=== PATIENT | male | born 1970 | race Caucasian/White ===

== ENCOUNTER 2021-03-14 10:58 | Emergency (ER) | payer BC ==
[~2021-03-14] VITALS: Ht 190.5 cm; Wt 112.0 kg
[~2021-03-14 10:58] MED LIST: CYCL10TA9 PO; NAPR-243 PO; PRD20T PO
[2021-03-14] MEDS ORDERED: ASPIRIN 81 MG CHEW (CHILDREN'S ASA) PO ONE (11:15)
[2021-03-14 11:23] LABS: BASOPHILS # (AUTO) 0.1 10^3/uL (0.0-0.1); BASOPHILS % (AUTO) 1 % (0-10); EOSINOPHILS # (AUTO) 0.2 10^3/uL (0.0-0.3); EOSINOPHILS % (AUTO) 2 % (0-10); HEMATOCRIT 50 % (40-54); HEMOGLOBIN 17.1 g/dL (13.3-17.7); LYMPHOCYTES # (AUTO) 2.4 10^3/uL (1.0-4.0); LYMPHOCYTES % (AUTO) 28 % (12-44); MEAN CORPUSCULAR HEMOGLOBIN 30 pg (25-34); MEAN CORPUSCULAR HGB CONC 34 g/dL (32-36); MEAN CORPUSCULAR VOLUME 87 fL (80-99); MEAN PLATELET VOLUME 9.4 fL (9.0-12.2); MONOCYTES # (AUTO) 0.6 10^3/uL (0.0-1.0); MONOCYTES % (AUTO) 7 % (0-12); NEUTROPHILS # (AUTO) 5.4 10^3/uL (1.8-7.8); NEUTROPHILS % (AUTO) 62 % (42-75); PLATELET COUNT 325 10^3/uL (130-400); WHITE BLOOD COUNT 8.7 10^3/uL (4.3-11.0)
[2021-03-14] MEDS ORDERED: MECLIZINE 25 MG (ANTIVERT) TAB PO STA (11:29)
--- NOTE | 2021-03-14 11:30 | ED Cardiac General ---
History of Present Illness General Chief Complaint: Chest Pain Stated Complaint: DIZZY,CHEST TIGHTNESS Nursing Triage Note: PT AMBULATE TO ROOM 06 WITH C/O CHEST PAIN STARTING X1 WEEK AGO. PT REPORTS DIZZYNESS. History of Present Illness Date Seen by Provider: Mar 14, 2021 Time Seen by Provider: 11:15 Initial Comments 51-year-old male presents for vertigo and chest pain. He reports the chest pain has been present for approximately 20 years, its intermittent and usually feels like he is pulled a muscle. The vertigo has been present for approximately 1 week and has been intermittent but got worse 2 days ago. He feels like he is spinning and the only way that it gets better is if he lies down. He has not taken any medication for the vertigo or the chest pain. He has no known history of CAD and no family history of CAD. He does not have a primary care provider. He has not received the Covid vaccine. He works at a local [employer] and is exposed to the public regularly. He monitors his B/P at home and has noticed it to be elevated but has not seen anyone for this. Timing/Duration: intermittent Severity: mild Location: central (not present now and no radiation when it happens) Activities at Onset: none Prior CP/Workup: no prior chest pain NTG SL DESILVERIZER: No ASA po DESILVERIZER: No Associated Systoms: Chest Pain; No Cough, No Diaphoresis, No Fever/Chills, No Headaches, No Loss of Appetite, No Nausea/Vomiting, No Shortness of Air, No Syncope Allergies and Home Medications Allergies Coded Allergies: Penicillins (Verified Adverse Reaction, Mild, Hives, 06/30/13) Home Medications Cyclobenzaprine Hcl 10 Mg Tablet, 1 EACH PO BID Prescribed by: SAHIL GALLARDO on 06/30/13 1005 Lisinopril 10 Mg Tablet, 10 MG PO DAILY Prescribed by: JAYY CHILDS on 03/14/21 1314 Naproxen 500 Mg Tablet, 500 EACH PO BID - TID PRN Prescribed by: SAHIL GALLARDO on 06/30/13 1005 Prednisone 20 Mg Tab, 20 MG PO DAILY Prescribed by: SAHIL GALLARDO on 06/30/13 1005 Patient Home Medication List Home Medication List Reviewed: Yes Review of Systems Review of Systems Constitutional: see HPI, dizziness Respiratory: No Symptoms Reported, See HPI Cardiovascular: See HPI, Chest Pain (chronic, feels like a muscle strain) Gastrointestinal: No Symptoms Reported, See HPI All Other Systems Reviewed Negative Unless Noted: Yes Past Klpkzqr-Eusnww-Errovg Hx Patient Social History Tobacco Use?: No Smoking Status: Former Smoker Substance use?: No Alcohol Use?: Yes Alcohol type: Beer Alcohol Frequency: Once in a while Pt feels they are or have been: No Past Medical History Reproductive Disorders: No Gastroesophageal Reflux Family Medical History Reviewed Nursing Family Hx Physical Exam Vital Signs Vital Signs - First Documented 03/14/21 03/14/21 11:05 13:23 Temp 36.3 Pulse 64 Resp 17 B/P (MAP) 176/130 (145) Pulse Ox 98 O2 Delivery Room Air Capillary Refill : Less Than 3 Seconds Height, Weight, BMI Height: '" Weight: 245lbs. oz. 111.026809vf; 30.00 BMI Method:Stated General Appearance: No Apparent Distress, WD/WN HEENT: PERRL/EOMI, TMs Normal, Normal ENT Inspection Neck: Full Range of Motion, Normal Inspection, Non Tender, Supple Respiratory: Chest Non Tender, Lungs Clear, Normal Breath Sounds Cardiovascular: Regular Rate, Rhythm, No Edema, No Murmur, Normal Peripheral Pulses Gastrointestinal: Normal Bowel Sounds, Non Tender, Soft Extremity: Normal Capillary Refill, Normal Inspection, Normal Range of Motion, Non Tender, No Calf Tenderness Neurologic/Psychiatric: Alert, Oriented x3, No Motor/Sensory Deficits, Normal Mood/Affect Skin: Normal Color, Warm/Dry Progress/Results/Core Measures Results/Orders Lab Results Laboratory Tests Test 03/14/21 11:17 03/14/21 11:23 Range/Units White Blood Count 8.7 4.3-11.0 10^3/uL Red Blood Count 5.77 H 4.30-5.52 10^6/uL Hemoglobin 17.1 13.3-17.7 g/dL Hematocrit 50 40-54 % Mean Corpuscular Volume 87 80-99 fL Mean Corpuscular Hemoglobin 30 25-34 pg Mean Corpuscular Hemoglobin Concent 34 32-36 g/dL Red Cell Distribution Width 11.8 10.0-14.5 % Platelet Count 325 130-400 10^3/uL Mean Platelet Volume 9.4 9.0-12.2 fL Immature Granulocyte % (Auto) 0 % Neutrophils (%) (Auto) 62 42-75 % Lymphocytes (%) (Auto) 28 12-44 % Monocytes (%) (Auto) 7 0-12 % Eosinophils (%) (Auto) 2 0-10 % Basophils (%) (Auto) 1 0-10 % Neutrophils # (Auto) 5.4 1.8-7.8 10^3/uL Lymphocytes # (Auto) 2.4 1.0-4.0 10^3/uL Monocytes # (Auto) 0.6 0.0-1.0 10^3/uL Eosinophils # (Auto) 0.2 0.0-0.3 10^3/uL Basophils # (Auto) 0.1 0.0-0.1 10^3/uL Immature Granulocyte # (Auto) 0.0 0.0-0.1 10^3/uL Prothrombin Time 13.5 12.2-14.7 SEC INR Comment 1.0 0.8-1.4 Activated Partial Thromboplast Time 27 24-35 SEC Sodium Level 140 135-145 MMOL/L Potassium Level 4.1 3.6-5.0 MMOL/L Chloride Level 107 98-107 MMOL/L Carbon Dioxide Level 23 21-32 MMOL/L Anion Gap 10 5-14 MMOL/L Blood Urea Nitrogen 11 7-18 MG/DL Creatinine 0.88 0.60-1.30 MG/DL Estimat Glomerular Filtration Rate 92 BUN/Creatinine Ratio 13 Glucose Level 113 H 70-105 MG/DL Calcium Level 9.7 8.5-10.1 MG/DL Corrected Calcium 9.5 8.5-10.1 MG/DL Magnesium Level 2.3 1.6-2.4 MG/DL Total Bilirubin 0.8 0.1-1.0 MG/DL Aspartate Amino Transf (AST/SGOT) 41 H 5-34 U/L Alanine Aminotransferase (ALT/SGPT) 35 0-55 U/L Alkaline Phosphatase 75 40-136 U/L Myoglobin 44.7 10.0-92.0 NG/ML Troponin I < 0.028 <0.028 NG/ML Total Protein 7.7 6.4-8.2 GM/DL Albumin 4.2 3.2-4.5 GM/DL Influenza Type A (RT-PCR) Not Detected Not Detecte Influenza Type B (RT-PCR) Not Detected Not Detecte SARS-CoV-2 RNA (RT-PCR) Not Detected Not Detecte My Orders Orders - JAYY CHILDS Cbc With Automated Diff (03/14/21 11:14) Magnesium (03/14/21 11:14) Chest 1 View, Ap/Pa Only (03/14/21 11:14) Ekg Tracing (03/14/21 11:14) Comprehensive Metabolic Panel (03/14/21 11:14) Myoglobin Serum (03/14/21 11:14) Protime With Inr (03/14/21 11:14) Partial Thromboplastin Time (03/14/21 11:14) O2 (03/14/21 11:14) Monitor-Rhythm Ecg Trace Only (03/14/21 11:14) Ed Iv/Invasive Line Start (03/14/21 11:14) Troponin I (03/14/21 11:14) Aspirin Chewable Tablet (Baby Aspirin Ch (03/14/21 11:15) Meclizine Tablet (Antivert Tablet) (03/14/21 11:29) Covid 19 Inhouse Test (03/14/21 11:56) Influenza A And B By Pcr (03/14/21 11:56) Clonidine Tablet (Catapres Tablet) (03/14/21 11:57) Medications Given in ED Current Medications Medications Dose Ordered Sig/Landon Route Start Time Stop Time Status Last Admin Dose Admin Aspirin 324 mg ONCE ONCE PO 03/14/21 11:15 03/14/21 11:16 DC 03/14/21 11:21 324 MG Vital Signs/I&O 03/14/21 03/14/21 03/14/21 11:05 11:09 13:23 Temp 36.3 Pulse 64 65 Resp 17 16 B/P (MAP) 176/130 (145) 132/106 Pulse Ox 98 O2 Delivery Room Air Room Air Room Air Blood Pressure Mean: 145 Progress Progress Note : Time: 11:15 Progress Note Patient seen and evaluated, will obtain EKG, chest x-ray, and labs. Will give aspirin 324 mg orally and meclizine 25 mg orally for vertigo. 1140 Blood pressure has continued to be elevated in the 150s to 90-100. Will give clonidine 0.1 mg. 1230 B/P improved 130s/80-90. All labs WNL. 1300 patient denies any complaints at this time. Lab results and work-up reviewed with him. Discharge instructions and return precautions discussed. Stressed the importance of establishing with a primary care provider. Initial ECG Impression Date: Mar 14, 2021 Initial ECG Impression Time: 11:06 Initial ECG Rate: 67 Initial ECG Rhythm: Normal Sinus Initial ECG Intervals: Normal Initial ECG Intervals [place] 140, QRSD 99, QT 393, QTc 415. Alpha P1, QRS -25. T3. Initial ECG Impression: Normal Initial ECG Comparisson: No Previous ECG Available Departure Impression Primary Impression: Vertigo Additional Impression: Hypertension Qualified Codes: I10 - Essential (primary) hypertension Disposition: HOME, SELF-CARE Condition: Improved Departure-Patient Inst. Decision time for Depature: 13:00 Referrals: [facility] [place],LOCAL PHYSICIAN (PCP) Primary Care Physician Patient Instructions: DASH Diet, Vertigo (a Type of Dizziness) (DC), Chest Pain That Is Not Caused by the Heart (DC) Add. Discharge Instructions: Establish care with a primary care provider. Take your Blood Pressure readings to appt. See list of Primary Care Doctors. Follow DASH diet. Take aspirin 81 mg once daily. Take meclizine 25 mg [id number] 1 every 8 hours as needed for dizziness. Increase water intake and limit time in the heat today and tomorrow. Drink 16 ounces of water every 2 hours while awake. Return to the emergency department if symptoms are not improving or worsen. All discharge instructions reviewed with patient and/or family. Voiced understanding. Scripts Lisinopril (Lisinopril) 10 Mg Tablet 10 MG PO DAILY, #21 TAB 0 Refills Prov: JAYY CHILDS 03/14/21 Work/School Note: [employer] JAYY CHILDS Mar 14, 2021 11:30
[2021-03-14 11:34] LABS: ALBUMIN 4.2 GM/DL (3.2-4.5); PROTHROMBIN TIME PATIENT 13.5 SEC (12.2-14.7)
[2021-03-14 11:35] LABS: POTASSIUM 4.1 MMOL/L (3.6-5.0)
[2021-03-14 11:36] LABS: CALCIUM 9.7 MG/DL (8.5-10.1)
[2021-03-14 11:37] LABS: TOTAL PROTEIN 7.7 GM/DL (6.4-8.2)
[2021-03-14 11:39] LABS: BILIRUBIN,TOTAL 0.8 MG/DL (0.1-1.0)
[2021-03-14 11:41] LABS: CREATININE SERUM 0.88 MG/DL (0.60-1.30)
[2021-03-14 11:43] LABS: MAGNESIUM 2.3 MG/DL (1.6-2.4)
[2021-03-14] MEDS ORDERED: cloNIDine 0.1 MG (CATAPRES) TAB PO STA (11:57)
--- NOTE | 2021-03-14 13:12 | Diagnostic Imaging Report ---
EXAM: Portable erect AP chest at 12:51 PM INDICATION: Dizziness COMPARISON: There are no prior studies available for comparison. FINDINGS: The heart size is within normal limits. There are a few crowded bronchovascular markings in the right infrahilar region but the lungs seem generally clear. There is no evidence for failure, pneumonia or for a pleural effusion. The mediastinum is not widened. The osseous structures are intact. IMPRESSION: There is no evidence for active disease. Dictated by: Dictated on workstation # [id number]
[2021-03-14] MEDS ORDERED: LISI10TA25 PO (13:14)
[2021-03-14 13:23] VITALS: BP 132/106
== END 2021-03-14 13:23 | disposition home or self-care (01) ==
LOC: EDUNIT# 10:58 → ER 11:01
DX: R42 Dizziness and giddiness (principal); I10 Essential (primary) hypertension; Z20.822 Contact with and (suspected) exposure to COVID-19; Z87.891 Personal history of nicotine dependence; Z79.52 Long term (current) use of systemic steroids
CPT/HCPCS: 36415; 71045; 80053; 83735; 83874; 84484; 85025; 85610; 85730; 87636; 93005; 93041